=== PATIENT | male | born 1960 | race Caucasian/White ===

== ENCOUNTER → 2017-11-16 | Outpatient (CLI) | payer BC, MEDICARE ==
--- NOTE | 2017-11-16 14:58 | RADIOLOGY REPORT (SQ) ---
EXAM DESCRIPTION: CT CHEST WITHOUT COMPLETED DATE/TIME: 11/16/2017 1:45 pm REASON FOR STUDY: PULMONARY INFILTRATE (R91.8) R91.8 OTHER NONSPECIFIC ABNORMAL FINDING OF LUNG FIE LD COMPARISON: None. TECHNIQUE: CT scan performed of the chest without intravenous contrast. Images reviewed with lung, soft tissue and bone windows. Reconstructed coronal and sagittal MPR images reviewed. All images st ored on PACS. All CT scanners at this facility use dose modulation, iterative reconstruction, and/or weight based d osing when appropriate to reduce radiation dose to as low as reasonably achievable (ALARA). [facility]: Dose Right [facility]: CareDose [facility]: Dose Right [facility]: Teradose 4D [facility]: Smart [employer] RADIATION DOSE: CT Rad equipment meets quality standard of care and radiation dose reduction techniq ues were employed. CTDIvol: 19.5 mGy. DLP: 758 mGy-cm. mGy. LIMITATIONS: No technical limitations. FINDINGS: LUNGS AND PLEURA: A few small noncalcified nodules in the lungs, with some of the largest measuring up to 4-5 mm. Patchy focal linear areas of atelectasis or scar in the middle lobes and th e lower lobes bilaterally. No pneumothorax or pleural effusion. The central airways are clear. HILAR AND MEDIASTINAL STRUCTURES: Mildly prominent mediastinal and hilar lymph nodes some of the lar gest mediastinal lymph nodes measure approximately 2.4 cm and the largest hilar lymph nodes 1.7 cm in short axis diameter. HEART AND VASCULAR STRUCTURES: Focal areas of coronary artery calcifications. No aneurysm. No peric ardial effusion. UPPER ABDOMEN: Mildly prominent portal caval and debra hepatis lymph nodes with some of the largest measuring approximately 3.3 cm. Small bilateral fat containing diaphragmatic hernias. Limited exam. THYROID AND OTHER SOFT TISSUES: No masses. No adenopathy. BONES: No significant finding. HARDWARE: None in the chest. OTHER: No other significant findings. IMPRESSION: 1 A few small subcentimeter pulmonary nodules with some of the largest measuring 4-5 mm. 2 Patchy focal linear areas of atelectasis or scar in the middle and lower lobes bilaterally. 3 Mildly prominent mediastinal and hilar lymph nodes. 4. Mildly prominent portal caval and debra hepatis lymph nodes. Further evaluation with CT abdomen a nd pelvis examination with IV contrast suggested. TECHNICAL DOCUMENTATION: JOB ID: [id number] Quality ID # [id number]: Final reports with documentation of one or more dose reduction techniques (e.g., Au tomated exposure control, adjustment of the mA and/or kV according to patient size, use of iterative reconstruction technique) 2010 [employer]- All Rights Reserved Reading location - IP/workstation name: [email or web address]
== END ==
LOC: RAD 13:32
PROVIDERS: ATTEND Internal Medicine Critical Care Medicine
DX: R91.8 Other nonspecific abnormal finding of lung field (principal)
CPT/HCPCS: 71250

== ENCOUNTER → 2018-03-10 | Outpatient (CLI) | payer BC, MEDICARE ==
--- NOTE | 2018-03-10 13:11 | RADIOLOGY REPORT (SQ) ---
EXAM DESCRIPTION: CT CHEST WITHOUT COMPLETED DATE/TIME: 03/10/2018 10:29 am REASON FOR STUDY: PULMONARY NODULE R91.1 SOLITARY PULMONARY NODULE COMPARISON: CT chest 11/26/2017, CT angio chest 03/18/2007 TECHNIQUE: CT scan performed of the chest without intravenous contrast. Images reviewed with lung, soft tissue and bone windows. Reconstructed coronal and sagittal MPR images reviewed. All images st ored on PACS. All CT scanners at this facility use dose modulation, iterative reconstruction, and/or weight based d osing when appropriate to reduce radiation dose to as low as reasonably achievable (ALARA). [facility]: Dose Right [facility]: CareDose [facility]: Dose Right [facility]: Teradose 4D [facility]: [employer] RADIATION DOSE: CT Rad equipment meets quality standard of care and radiation dose reduction techniq ues were employed. CTDIvol: 19.4 mGy. DLP: 803 mGy-cm. mGy. LIMITATIONS: No technical limitations. FINDINGS: LUNGS AND PLEURA: Multiple tiny less than 4 mm smooth round subpleural nodules bilaterally likely noncalcified granulomas. These are most numerous in the periphery of the right upper lobe, a nd are unchanged compared to both prior studies. No worrisome features. Bandlike scarring in the medial segment right middle lobe. Patchy areas of centrilobular emphysema are stable, upper lobe predominant. No pneumothorax. No pleural effusions. Airways are patent. HILAR AND MEDIASTINAL STRUCTURES: No identified masses or abnormal nodes. No obvious aneurysm. HEART AND VASCULAR STRUCTURES: No aneurysm. No pericardial effusion. UPPER ABDOMEN: No significant findings. Limited exam. THYROID AND OTHER SOFT TISSUES: No masses. No adenopathy. BONES: No significant finding. HARDWARE: None in the chest. OTHER: No other significant findings. IMPRESSION: Postinflammatory granulomas, unchanged. Obstructive lung disease. Bandlike scarring in the medial aspect right middle lobe. TECHNICAL DOCUMENTATION: JOB ID: [id number] Quality ID # [id number]: Final reports with documentation of one or more dose reduction techniques (e.g., Au tomated exposure control, adjustment of the mA and/or kV according to patient size, use of iterative reconstruction technique) 2010 [employer]- All Rights Reserved Reading location - IP/workstation name: [email or web address] [email or web address]
== END ==
LOC: RAD 10:13
PROVIDERS: ATTEND Internal Medicine Critical Care Medicine
DX: R91.1 Solitary pulmonary nodule (principal)
CPT/HCPCS: 71250

== ENCOUNTER 2019-01-20 09:19 | Emergency (ER) | payer BC, MEDICARE ==
[2019-01-20 10:22] LABS: ABSOLUTE BASOPHILS # (AUTO) 0.1 10^3/uL (0.0-0.2); ABSOLUTE EOSINOPHILS # (AUTO) 0.2 10^3/uL (0.0-0.6); ABSOLUTE LYMPHOCYTES (AUTO) 1.1 10^3/uL (0.5-4.7); ABSOLUTE MONOCYTES (AUTO) 0.7 10^3/uL (0.1-1.4); ABSOLUTE NEUT (AUTO) 7.7 10^3/uL (1.7-8.2); BASOPHILS % (AUTO) 0.9 % (0-2); EOSINOPHILS % (AUTO) 1.9 % (0-6); HEMATOCRIT 47.7 % (37.9-51.0); HEMOGLOBIN 15.8 g/dL (13.5-17.0); LYMPHOCYTES % (AUTO) 11.1 % (13-45); MEAN CORPUSCULAR HEMOGLOBIN 31.1 pg (27.0-33.4); MEAN CORPUSCULAR HGB CONC 33.1 g/dL (32.0-36.0); MEAN CORPUSCULAR VOLUME 94 fl (80-97); MONOCYTES % (AUTO) 6.7 % (3-13); PLATELET COUNT 258 10^3/uL (150-450); RED BLOOD COUNT 5.09 10^6/uL (4.35-5.55); RED CELL DISTRIBUTION WIDTH 14.8 % (11.5-14.0); SEGMENTED NEUTROPHILS % (AUTO) 79.4 % (42-78); TOTAL CELLS COUNTED % (AUTO) 100 %; WHITE BLOOD COUNT 9.8 10^3/uL (4.0-10.5)
[2019-01-20 10:23] LABS: INTERNATIONAL RATION (INR) 1.03; PROTHROMBIN TIME 13.5 SEC (11.4-15.4)
[2019-01-20 10:31] LABS: ALBUMIN 4.3 g/dL (3.5-5.0); ALKALINE PHOSPHATASE 69 U/L (38-126); ASPARTATE AMINO TRANSFERASE 44 U/L (17-59); BILIRUBIN,DIRECT 0.6 mg/dL (0.0-0.4); BLOOD UREA NITROGEN 13 mg/dL (7-20); CALCIUM 9.7 mg/dL (8.4-10.2); CHLORIDE 92 mmol/L (98-107); GLUCOSE 128 mg/dL (75-110); POTASSIUM 4.1 mmol/L (3.6-5.0); TOTAL PROTEIN 8.3 g/dL (6.3-8.2)
[2019-01-20] MEDS ORDERED: IPRATROPIUM/ALBUTEROL 0.5-2.5 MG/3 ML AMPUL NEB ONE (10:34)
[2019-01-20] MEDS ORDERED: PREDNISONE 20 MG TABLET PO ONE (10:34)
[2019-01-20 10:38] LABS: ANION GAP 8 (5-19); CARBON DIOXIDE 39 mmol/L (22-30)
--- NOTE | 2019-01-20 11:13 | RADIOLOGY REPORT (SQ) ---
EXAM DESCRIPTION: CHEST SINGLE VIEW COMPLETED DATE/TIME: 01/20/2019 10:39 am REASON FOR STUDY: SOB COMPARISON: 2011 NUMBER OF VIEWS: One view. TECHNIQUE: Single frontal radiographic view of the chest acquired. LIMITATIONS: None. FINDINGS: LUNGS AND PLEURA: No opacities, masses or pneumothorax. No pleural effusion. MEDIASTINUM AND HILAR STRUCTURES: No masses or contour abnormality. HEART AND VASCULATURE: Cardiac enlargement. Vascular congestion. BONES: No acute findings. HARDWARE: None in the chest. OTHER: No other significant finding. IMPRESSION: CARDIAC ENLARGEMENT. VASCULAR CONGESTION. TECHNICAL DOCUMENTATION: JOB ID: [id number] [employer]- All Rights Reserved Reading location - IP/workstation name: [email or web address]
[2019-01-20 11:17] LABS: APPEARANCE,URINE CLEAR; BILIRUBIN,URINE NEGATIVE (NEGATIVE); COLOR,URINE YELLOW; GLUCOSE, URINE NEGATIVE (NEGATIVE); KETONES,URINE NEGATIVE (NEGATIVE); LEUKOCYTE ESTERASE,URINE NEGATIVE (NEGATIVE); NITRITE,URINE NEGATIVE (NEGATIVE); PROTEIN,URINE 100 mg/dL (NEGATIVE); URINE SPECIFIC GRAVITY 1.008; UROBILINOGEN,URINE NEGATIVE mg/dL (<2.0)
[2019-01-20 11:21] LABS: VENOUS BLOOD BASE EXCESS 9.4 mmol/L; VENOUS BLOOD HCO3 38.5 mmol/L (20-32); VENOUS BLOOD PH 7.35 (7.30-7.42)
[2019-01-20 11:27] LABS: VENOUS BLOOD PCO2 70.8 mmHg (35-63)
[2019-01-20] MEDS ORDERED: DOXYCYCLINE HYCLATE 100 MG TABLET PO ONE (13:20)
[2019-01-20] MEDS ORDERED: ALBUTEROL SULFATE HFA (90 MCG/PUFF) 8 GM MDI (1 MDI/ER DISP) IH ONE (13:27)
[2019-01-20 14:00] VITALS: BP 152/86
--- NOTE | 2019-01-20 14:21 | EKG REPORT ---
SEVERITY:- ABNORMAL ECG - SINUS RHYTHM RIGHT BUNDLE BRANCH BLOCK : Confirmed by: Sreedhar Hough 20-Jan-2019 14:21:03
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
== END 2019-01-20 14:23 | disposition home or self-care (01) ==
LOC: ER 09:19
DX: J44.1 Chronic obstructive pulmonary disease with (acute) exacerbation (principal); R06.02 Shortness of breath; Z99.81 Dependence on supplemental oxygen; F41.9 Anxiety disorder, unspecified; F17.200 Nicotine dependence, unspecified, uncomplicated; I50.9 Heart failure, unspecified; I11.0 Hypertensive heart disease with heart failure; Z79.899 Other long term (current) drug therapy; E10.9 Type 1 diabetes mellitus without complications
CPT/HCPCS: 93005; 99284; 36415; 87040; 87086; 82962; 85025; 85610; 80053; 81001; 84484; 82803; 83605; 83880; 71045; 93010; A9270 ×3; J3490; J7512; J7620